=== PATIENT | female | born 1970 | race Caucasian/White ===

== ENCOUNTER 2017-07-01 04:27 | Emergency (ER) | payer MEDICAID ==
[~2017-07-01] VITALS: Ht 172.7 cm; Wt 72.6 kg
--- NOTE | 2017-07-01 04:40 | NUR ---
Dr Cancino at bedside to eval.
[2017-07-01] MEDS ORDERED: LIDOCAINE /MPF 1% VIAL 5 ML VIAL ONE (04:42)
--- NOTE | 2017-07-01 04:54 | NUR ---
Dr Cancino at bedside to suture lac.
[2017-07-01 05:06] VITALS: BP 113/79
--- NOTE | 2017-07-01 05:06 | NUR ---
Patient discharged to home in stable condition. Written and verbal after care instructions given. Patient verbalizes understanding of instruction. Patient is ambulatory with steady gait, no further complaints.
== END 2017-07-01 05:15 | disposition home or self-care (01) ==
LOC: ER 04:30
DX: S01.511A Laceration without foreign body of lip, initial encounter (principal); W22.8XXA Striking against or struck by other objects, initial encounter; Y93.01 Activity, walking, marching and hiking; Y92.89 Other specified places as the place of occurrence of the external cause; Y99.8 Other external cause status
CPT/HCPCS: 40652; 99284; A4606; A6402; J3490; Z7610